=== PATIENT | female | born 1965 | race Caucasian/White ===

== ENCOUNTER 2017-10-08 17:46 | Emergency (ER) | payer OTHER ==
[~2017-10-08] VITALS: Ht 162.6 cm; Wt 95.3 kg
--- NOTE | 2017-10-08 17:50 | NUR ---
BIB SELF C/O SUICIDAL IDEATION PLAN IS TO RUN INTO THE TRAFFIC. NAD NOTED, VSS, RESP EVEN AND UNLABORED, PT WAS PUT ON MONITOR, WAITING FOR MD CASTRO.
[2017-10-08 18:34] LABS: APPEARANCE,URINE Clear (CLEAR); BILIRUBIN,URINE Negative (NEGATIVE); BLOOD, URINE Trace-intact Ery/uL (NEGATIVE); COLOR,URINE Yellow (YELLOW); KETONES,URINE Negative (NEGATIVE); LEUKOCYTE ESTERASE ,URINE Small (NEGATIVE); NITRITE, URINE Negative (NEGATIVE); PH,URINE 5.5 (5.0-8.0); PROTEIN,URINE Negative (NEGATIVE); UGLUCOSE Negative (NEGATIVE); UROBILINOGEN,URINE 0.2 EU/dL (0.2)
[2017-10-08 18:41] LABS: BASOPHILS # (AUTO) 0.1 /CMM (0.0-0.2); BASOPHILS % (AUTO) 0.7 % (0.0-2.0); HEMATOCRIT 31 % (33-45); HEMOGLOBIN 10.9 g/dL (11.5-14.8); LYMPHOCYTES # (AUTO) 1.5 /CMM (0.8-4.8); LYMPHOCYTES % (AUTO) 20.2 % (20.0-44.0); MEAN CORPUSCULAR HGB CONC 35 g/dl (31.0-36.0); MEAN CORPUSCULAR VOLUME 83 fL (82-100); MONOCYTES # (AUTO) 0.6 /CMM (0.1-1.30); NEUTROPHILS # (AUTO) 5.5 /CMM (1.8-8.9); NEUTROPHILS % (AUTO) 71.1 % (43.0-81.0); PLATELET COUNT (AUTO) 197 /CMM (150-450); RDW COEFFICIENT OF VARIATION 12.2 (11.5-15.0); RED BLOOD CELL COUNT(AUTO) 3.76 MIL/uL (4.0-5.2); WHITE BLOOD COUNT (AUTO) 7.7 K/uL (4.3-11.0)
[2017-10-08 18:50] LABS: CARBON DIOXIDE 28 mmol/L (21-32); CHLORIDE 102 mmol/L (98-107); CREATININE 0.8 mg/dL (0.6-1.3); GLUCOSE 161 mg/dL (74-106); POTASSIUM 4.1 mmol/L (3.5-5.1); SODIUM SERUM 135 mmol/L (136-145); UREA NITROGEN, BLOOD 18 mg/dL (7-18)
[2017-10-08 18:53] LABS: BACTERIA,URINE 1+ /HPF (None Seen); SQUAMOUS EPITHELIAL CELL,UR Few /HPF (None Seen)
[2017-10-08 19:03] LABS: ALANINE AMINOTRANSFERASE 21 U/L (12-78); ALBUMIN 2.9 g/dL (3.4-5.0); ALCOHOL, BLOOD < 3 mg/dL (0-0); ALKALINE PHOSPHATASE 103 U/L (46-116); ASPARTATE AMINOTRANSFERASE 10 U/L (15-37); BILIRUBIN,DIRECT 0.1 mg/dL (0.0-0.2); BILIRUBIN,TOTAL 0.3 mg/dL (0.2-1.0)
[2017-10-08 19:04] LABS: ACETAMINOPHEN < 2 ug/ml (10-30)
--- NOTE | 2017-10-08 19:09 | NUR ---
VINAYY CALLED AND ON HER WAY.
[2017-10-08 19:15] LABS: THYROID STIMULATING HORMONE 2.125 uIU/mL (0.358-3.74)
--- NOTE | 2017-10-08 23:11 | NUR ---
CALLED KASANDRA TO ARRANGE A BLS TRANSPORT TO [facility] AND SPOKE WITH DISPATCHER SAJAN AND WAS GIVEN AN ETA FOIL WRAPPER TIME OF 0000 (MIDNIGHT).
--- NOTE | 2017-10-08 23:21 | NUR ---
Patient is resting comfortably in bed with eyes closed. Easily aroused. VSS
--- NOTE | 2017-10-09 00:18 | NUR ---
CALLED TING FOR TRANSPORT FLOOW-UP AND INFORMED "[address] WILL BE HERE IN 5MINUTES". INFORMED PT.
--- NOTE | 2017-10-09 00:34 | NUR ---
REPORT GIVEN TO [facility] STAFF.
[2017-10-09 00:39] VITALS: BP 134/75
--- NOTE | 2017-10-09 00:39 | NUR ---
AMBULATORY WITH STEADY GAIT. TO BE TRANSPORTED TO [facility]. DENIES ANY NEW OR WORSENING SX'S AT THIS TIME. RESP EVEN AND UNLABORED.
== END 2017-10-09 00:48 ==
LOC: ER 17:49
DX: R45.851 Suicidal ideations (principal); E11.9 Type 2 diabetes mellitus without complications; E78.00 Pure hypercholesterolemia, unspecified; F25.9 Schizoaffective disorder, unspecified; F32.9 Major depressive disorder, single episode, unspecified; G47.30 Sleep apnea, unspecified; I10 Essential (primary) hypertension; I34.1 Nonrheumatic mitral (valve) prolapse; Z88.0 Allergy status to penicillin; Z88.6 Allergy status to analgesic agent
CPT/HCPCS: 36415; 80048; 80076; 80305; 80329; 81001; 84443; 85025; 87086; 93005; 99285; A4606; G0480 ×2; Z7610; 81000-TC

== ENCOUNTER 2022-04-30 16:47 | Emergency (ER) | payer OTHER ==
[~2022-04-30] VITALS: Ht 157.5 cm; Wt 104.3 kg
[2022-04-30] MEDS ORDERED: METOCLOPRAMIDE HCL 10 MG/2 ML VIAL ONE (17:48)
[2022-04-30] MEDS ORDERED: diphenhydrAMINE HCL 50 MG/ML VIAL ONE (17:48)
[2022-04-30] MEDS ORDERED: ACETAMINOPHEN ES 500 MG TABLET ONE (17:49)
[2022-04-30] MEDS ORDERED: METOCLOPRAMIDE HCL 10 MG/2 ML VIAL IV ONE (18:00)
[2022-04-30] MEDS ORDERED: diphenhydrAMINE HCL 50 MG/ML VIAL IV ONE (18:00)
[2022-04-30] MEDS ORDERED: ACETAMINOPHEN ES 500 MG TABLET PO ONE (18:00)
[2022-04-30 18:08] LABS: BASOPHILS % (AUTO) 0.5 % (0.0-2.0); HEMATOCRIT 38 % (33-45); HEMOGLOBIN 12.3 g/dL (11.5-14.8); LYMPHOCYTES # (AUTO) 2.2 K/uL (0.8-4.8); LYMPHOCYTES % (AUTO) 34.2 % (20.0-44.0); MEAN CORPUSCULAR HGB CONC 33 g/dl (31.0-36.0); MEAN CORPUSCULAR VOLUME 87 fL (82-100); MONOCYTES # (AUTO) 0.4 K/uL (0.1-1.30); MONOCYTES % (AUTO) 6.5 % (2.0-12.0); NEUTROPHILS # (AUTO) 3.9 K/uL (1.8-8.9); NEUTROPHILS % (AUTO) 58.8 % (43.0-81.0); PLATELET COUNT (AUTO) 179 K/uL (150-450); RED BLOOD CELL COUNT(AUTO) 4.35 MIL/uL (4.0-5.2); WHITE BLOOD COUNT (AUTO) 6.6 K/uL (4.3-11.0)
[2022-04-30 18:18] LABS: CALCIUM, SERUM 9.4 mg/dL (8.5-10.1); CARBON DIOXIDE 32 mmol/L (21-32); CHLORIDE 101 mmol/L (98-107); CREATININE 0.8 mg/dL (0.6-1.3); GLUCOSE 133 mg/dL (74-106); POTASSIUM 3.8 mmol/L (3.5-5.1); SODIUM SERUM 137 mmol/L (136-145); UREA NITROGEN, BLOOD 17 mg/dL (7-18)
[2022-04-30 18:25] LABS: ALANINE AMINOTRANSFERASE 24 U/L (12-78); ALBUMIN 3.5 g/dL (3.4-5.0); ALKALINE PHOSPHATASE 86 U/L (46-116); ASPARTATE AMINOTRANSFERASE 11 U/L (15-37); BILIRUBIN,DIRECT 0.1 mg/dL (0.0-0.2); BILIRUBIN,TOTAL 0.4 mg/dL (0.2-1.0); TOTAL PROTEIN, SERUM 6.7 g/dL (6.4-8.2)
[2022-04-30] MEDS ORDERED: hydrALAZINE HCL 50 MG TABLET ONE (18:48)
[2022-04-30] MEDS ORDERED: hydrALAZINE HCL 25 MG TABLET PO ONE (19:00)
--- NOTE | 2022-04-30 19:54 | NUR ---
CALLED [facility] AND SPOKE WITH YAEL LIN IN ROOM DINING SERVER. PT NEEDS TO BE PRESENTED FOR INTAKE AGAIN. COVID SWAB DONE AND SENT TO LAB
[2022-04-30 22:06] VITALS: BP 144/83
--- NOTE | 2022-04-30 22:23 | NUR ---
CLINICALS FAXED TO [facility]TAKE
--- NOTE | 2022-04-30 22:45 | NUR ---
URINE COLLECTED AND SENT TO LAB. PER INTAKE, PT NEEDS ANOTHER UA, DRUG SCREEN AND EVEN IF THE PT JUST CAME FROM [facility] VIA [id number]
--- NOTE | 2022-04-30 22:52 | NUR ---
TRANSFER INFO: PT GOING TO [facility], UNIT[facility] RN FOR REPORT [phone] QUENTIN [facility] ETA [phone] HOURS
[2022-04-30 23:18] LABS: BILIRUBIN,URINE NEGATIVE (NEGATIVE); LEUKOCYTE ESTERASE ,URINE NEGATIVE (NEGATIVE); NITRITE, URINE NEGATIVE (NEGATIVE); PROTEIN,URINE NEGATIVE (NEGATIVE); UGLUCOSE NEGATIVE (NEGATIVE); UROBILINOGEN,URINE 0.2 EU/dL (0.2)
[2022-04-30 23:22] LABS: COLOR,URINE LIGHT YELLOW (YELLOW)
--- NOTE | 2022-04-30 23:36 | NUR ---
REPORT GIVEN TO YAEL LIN FOR ADELINA AT THE [facility]
--- NOTE | 2022-04-30 23:40 | NUR ---
pt left on gurney with 2 last model department supervisor at bedside. report given. pt is in stable condition for transport
== END 2022-04-30 23:45 ==
LOC: ER 16:55
DX: R51.9 Headache, unspecified (principal); F25.9 Schizoaffective disorder, unspecified; I44.0 Atrioventricular block, first degree; Z88.6 Allergy status to analgesic agent; Z88.0 Allergy status to penicillin; B00.9 Herpesviral infection, unspecified; E11.9 Type 2 diabetes mellitus without complications; I34.1 Nonrheumatic mitral (valve) prolapse; F50.89 Other specified eating disorder; Z20.822 Contact with and (suspected) exposure to COVID-19
CPT/HCPCS: 99285; 96374; 70450; 71045; 96375; 87426; 93005; 85025; 80048; 80076; 84703; 36415; 84484; 80307; 81003; J1200; J2765; C9803